=== PATIENT | female | born 1970 | race Caucasian/White ===

== ENCOUNTER → 2020-07-16 16:11 | Outpatient (CLI) | payer OTHER, SELFPAY ==
--- NOTE | ~2020-07-16 | XR_ITS ---
EXAMINATION: XR lumbar spine 2-3V DATE: 07/16/2020 16:35 INDICATION: Low back pain. TECHNIQUE: 3 views of lumbar spine were obtained. COMPARISON: None. FINDINGS: There is 3 degrees levocurvature of lumbar spine. Vertebral body heights and intervertebral disc heights are normal. There are endplate osteophytes at most levels. The facet joints are unremar kable. IMPRESSION: 1. Mild lumbar spondylosis. Reviewed, dictated and finalized at location A. IMPRESSION: 1. Mild lumbar spondylosis.
== END ==
PROVIDERS: PCP Internal Medicine; Visit Provider Nurse Practitioner
DX: M54.9 Dorsalgia, unspecified (principal); M47.816 Spondylosis without myelopathy or radiculopathy, lumbar region
CPT/HCPCS: 72100

== ENCOUNTER 2022-02-16 16:50 | Outpatient (CLI) | payer OTHER, SELFPAY ==
--- NOTE | ~2022-02-16 | XR_ITS ---
EXAM: XR_[id number]_CR HISTORY: M54.2 - Cervicalgia COMPARISON: None available FINDINGS: The craniocervical association and atlantoaxial joint are normal. Normal prevertebral soft tissues. Slight reversal of the cervical lordosis centered at C5-6. Moderate disc space narrowing an d mild marginal osteophytosis at C5-6. Remaining disc spaces preserved. Vertebral body heights are in tact. Mild facet hypertrophy in the upper and mid cervical spine. IMPRESSION: Moderate degenerative disc disease at C5-6. Multilevel mild facet arthropathy. Reviewed, dictated and finalized at location K.
== END 2022-02-16 16:51 | disposition home or self-care (01) ==
PROVIDERS: PCP Internal Medicine; Visit Provider Nurse Practitioner
DX: M47.812 Spondylosis without myelopathy or radiculopathy, cervical region (principal)
CPT/HCPCS: 72040

== ENCOUNTER 2022-05-02 11:15 | Outpatient (RCR) | payer OTHER, SELFPAY ==
--- NOTE | 2022-03-08 17:23 | PTOPEVAL ---
Thank you for referring Vianey Curry to [facility].? The patient is scheduled to be seen for therapy? 2x/week for 8 weeks. Please review, sign, date and return this plan of care SAMIRA. I agree with and certify that the following plan of care is medically necessary. Referring Physician Date Attending Provider: Rhiannon Malloy NP Diagnosis neck and back pain. Onset chronic Additional Evaluation Detail x-ray: Moderate degenerative disc disease at C5-6. Multilevel mild facet arthropathy. low back: Mild lumbar spondylosis. Subjective Information She c/o muscle spasms which Query Text:As Reported By Patient/ cover her full back region. Family The neck spasm started in February 01. She was working on her computer when she has a muscle spasm in her left shoulder blade region. Radiating symptoms into jaw/UE and LE region Denies any injury but chronic pain. She has increased pain with driving, prolonged sitting, use of computer. States she has poor desk set- up. She changes positions at least every 30 min to 1 hr. She does cardio, UE/LE resistance training. No increased neck pain with exercise. Pain Assessment Posterior Neck Reported Pain Level 1 Pain Description Aching,Numbness,Radiating, Tender on Palpation,Tightness, Tingling Pain Radiation Left Arm Pain Frequency Chronic Lowest Pain Intensity 1 Greatest Pain Intensity 3 Pain Aggravating Factors Prolonged Position,Sitting Cervical and Lumbar ROM Cervical ROM Cervical Flexion (0-60) 50 Degrees Cervical Extension (0-70) 50 Degrees Cervical Lateral Flexion Right (0-50) 30 Degrees Cervical Lateral Flexion Left (0-50) 20 Degrees Cervical Rotation Right (0-90) 60 Degrees Cervical Rotation Left (0-90) 55 Degrees Cervical ROM Comments pain with all motion Upper Extremity Range of Motion General Upper Extremity Range of Motion Reason Not Measured WNL/Left,WNL/Right Cervical and Lumbar Muscle Testing Cervical Muscle Testing Cervical Flexion 4 Good
--- NOTE | 2022-03-14 16:20 | PCPTNOTE ---
Patient called & cancelled scheduled appointment this date due to illness. This visit was to evaluate her back. Will cont to address her neck and evaluate her back at her re-eval visit.
--- NOTE | 2022-03-17 08:54 | PCPTNOTE ---
Patient did not show up for scheduled appointment this date. Called and left voicemail for Pt about missed appointment. Reminded Pt of upcoming appointment on Monday03/22/22 @ 16:30. This is Pt's first N/S.
--- NOTE | 2022-03-24 14:33 | PCPTNOTE ---
Patient called & cancelled scheduled appointment this date due to a work emergency.
--- NOTE | 2022-03-29 12:28 | PCPTNOTE ---
Patient called & cancelled scheduled appointment this date due to exposure COVID-19.
--- NOTE | 2022-03-31 17:11 | PCPTNOTE ---
Patient called & cancelled scheduled appointment this date due to exposure to COIVD-19.
--- NOTE | 2022-04-05 16:55 | PCPTNOTE ---
Addendum entered by Ángela De La Rosa, [employer] 04/05/22 17:01: Called patient and left reminder call for next appointment on 04/07/22 at 7:30, stated understood patient was positive for COVID and educated patient to inform us on further appointments. Original Note: Patient did not show up for scheduled appointment this date.
--- NOTE | 2022-04-06 16:37 | PCPTNOTE ---
Patient called & cancelled scheduled appointment FOR 04/06/22 due to still getting over COVID-19.
--- NOTE | 2022-04-12 15:56 | PCPTNOTE ---
Patient did not show up for scheduled appointment this date. Called and spoke with patient, she got her days confused. She has been rescheduled.
--- NOTE | 2022-04-25 15:29 | PTOPEVAL ---
PHYSICAL THERAPY INITIAL EVALUATION AND PROGRESS REPORT. Thank you for referring Vianey Curry to [facility].? The patient is scheduled to be seen for therapy? 2x/week for 4 weeks. Please review, sign, date and return this plan of care SAMIRA. I agree with and certify that the following plan of care is medically necessary. Referring Physician Date Attending Provider: Rhiannon Malloy NP Evaluation Information Diagnosis neck and back pain. Onset chronic Additional Evaluation Detail Pt arrived 18 mins later for her progress report this date Subjective Information Pt states her shoulder is Query Text:As Reported By Patient/ doing better, she states she Family feels like she has more mobility but still gets stiff and sore but is not painful like before. She states her back is about the same. She reports good compliance with her HEP. Pt states she can walk 1-4 miles a day without thinking about her back pain . She states later she will notice her back pain after resting for a while. Pain Assessment Lower Back Reported Pain Level 2 Pain Description Aching,Tightness,With Movement Greatest Pain Intensity 5 Posterior Neck Reported Pain Level 0 Pain Description Soreness,Tightness Greatest Pain Intensity 3 Cervical and Lumbar ROM Cervical ROM Cervical Flexion (0-60) 52 Cervical Extension (0-70) 55 Cervical Lateral Flexion Right (0-50) 45 Cervical Lateral Flexion Left (0-50) 35 Cervical Rotation Right (0-90) 70 Cervical Rotation Left (0-90) 65 Cervical ROM Comments pt report mild discomfort on her L with rotation Lumbar ROM Lumbar Flexion Active Mid Godinez Lumbar Extension (0-40) 30 Lateral Flexion 1in above lateral knee joint Query Text:Active Hands to: bilaterally Lateral Rotation Right (0-45) 40 Lateral Rotation Left (0-45) 40 Upper Extremity Range of Motion General Upper Extremity Range of Motion WNL/Left,WNL/Right Lower Extremity Range of Motion General Lower Extremity Range of Motion WFL/Left,WFL/Right Lower Extremity Muscle Strength Testing General Lower Extremity Strength WFL/Left,WFL/Right Gross Lower Extremity Strength BLE grossly 4/5 B hip abduction 3/5 Muscle Length Testing Scalene Group Muscle Length (R) Moderate Tightness,(L) Query Text: Moderate Tightness Latissimus Dorsi
--- NOTE | 2022-05-04 16:17 | PCPTNOTE ---
Patient did not show up for scheduled appointment this date. Pt called after appointment time to cancel. See Physical Therapist note.
--- NOTE | 2022-05-04 16:23 | PCPTNOTE ---
Attending Provider: Rhiannon Malloy NP Patient:Vianey Curry Date of :1970 PHYSICAL THERAPY DISCHARGE SUMMARY Patient called today to cancel all of her remaining appointments. She states she went to the doctor today and they determined they would like to try someone else for her back pain. Pt states she would like to be discharged at this time. She was informed that if she would like to return to therapy she will need a new order. Patient?s initial visit was on 03/08/2022 and she had a total of 6 visits. Thank you for referring this patient to [facility]. Please review, sign, date and return this discharge summary SAMIRA. I have been updated about the patient's current status and I agree with discharge from the above service at this time. Referring Physician Date
== END 2022-05-05 08:33 | disposition home or self-care (01) ==
LOC: ANHPT 11:15
PROVIDERS: PCP Internal Medicine; Visit Provider Nurse Practitioner
DX: M54.50 Low back pain, unspecified (principal); M54.2 Cervicalgia
CPT/HCPCS: 97014; 97110; 97140; 97161; 97162; G0283

== ENCOUNTER 2022-06-21 08:00 | Outpatient (NON) | payer OTHER, SELFPAY | END 2022-06-21 08:01 | disposition home or self-care (01) | LOC: ANHLAB 06-22 07:48 | PROVIDERS: PCP Internal Medicine; Visit Provider Internal Medicine Gastroenterology | DX: Z12.11 Encounter for screening for malignant neoplasm of colon (principal) | CPT/HCPCS: 88305 ==

== ENCOUNTER 2022-06-21 14:08 | Day surgery (SDC) | payer OTHER, SELFPAY ==
[2022-06-08 09:01] VITALS: BMI 29.4
[2022-06-08 10:22] VITALS: BMI 29.9
--- NOTE | 2022-06-21 07:24 | P.PNAN_ITS ---
Anes - Initial Pre Proc Eval Procedure: Operation Date: 06/21/22 14:30 Proposed Procedures p Screening Colonoscopy - Robby Torres MD Date/Time: 06/21/22 07:24 Surgeon: Robby Torres MD Pre Op Diagnosis: Neoplasm Screening Patient Data Age: 52 Gender: F Height: 1.63 m Weight: 79 kg Allergies Allergy/AdvReac Type Severity Reaction Status Date / Time No Known Allergies Allergy Verified 06/21/22 14:33 Home Medications Medication Instructions Recorded Confirmed Type dextroamphetamine-amphetamine ER 10 mg PO DAILY 08/31/21 06/15/22 History 10 mg 24hr capsule,extend release (Adderall XR) estradiol 1 mg tablet (Estrace) 1 mg PO DAILY 06/08/22 06/15/22 History cyclobenzaprine 10 mg tablet 10 mg PO BID PRN muscle spasm #20 06/15/22 06/15/22 Rx tabs Patient hx anesthesia problems: none Family hx anesthesia problems: none Results Review: All pre-operative results and documents have been reviewed as part of the pre- operative evaluation. [facility] Past Medical History Medical History Anxiety Depression Surgical History Surgical History H/O laparoscopy H/O: hysterectomy Family History Family History Mother Hypertension Father Hypertension CHF (congestive heart failure) Social History Social History Social History: caffeine-3 cups daily Smoking status: Never smoker Alcohol intake: current Alcohol use details: occasional Substance use type: does not use Living arrangements: with family Spiritual care concerns: No Anes - Eval Final PreProcedure Day of Procedure 06/21/22 07:24 Patient weight: overweight Heart: regular rate and rhythm Lungs: clear to auscultation Airway: Mallampati scale class II Neurological: alert and oriented Last oral intake: >/= 8 hours ASA classification: II Emergent: no Anesthetic plan: proceed Anesthesia type and monitoring: general GIVS and standard monitoring Results Review: All pre-operative results and documents have been reviewed as part of the pre- operative evaluation. Informed Consent: The patient's anesthetic plan and its attendant risks and benefits were discussed with the patient/family/POA. Questions were solicited and answers provided to the satisfaction of the patient/family/POA.
[2022-06-21 14:47] VITALS: BMI 30.2
[2022-06-21 14:48] VITALS: BP 138/90; PULSE 59; RESP 15; TEMP 37.2; O2SAT 100
[2022-06-21] MEDS: LACTATED RINGERS 1,000 ML 150 ML IV CONT (14:51)
[2022-06-21 14:58] VITALS: BP 142/83; PULSE 60; RESP 20; O2SAT 95
--- NOTE | 2022-06-21 15:07 | PM.HPGS ---
History of Present Illness History of Present Illness Consent: Risks, benefits, and alternatives have been discussed and questions answered. Patient agrees to proceed with procedure. Chief complaint: Neoplasm Screening Narrative: Vianey Curry is a 52 year old female here for first screening colonoscopy Review of Systems Constitutional: Constitutional: Denies headache(s) and Denies weakness Eyes: Eyes: Denies blurry vision ENT: Reports Normal hearing present, Denies headache(s) and Denies neck pain Cardiovascular: Cardiovascular: Denies chest pain and Denies dyspnea Respiratory: Respiratory: Denies dyspnea Gastrointestinal: Gastrointestinal: Reports no additional gastrointestinal complaints Genitourinary: Genitourinary: Denies dysuria Musculoskeletal: Musculoskeletal: Denies neck pain Integumentary/Breasts: Skin/Breast: Denies dry skin Neurologic: Reports Normal hearing present, Denies headache(s) and Denies weakness Psychiatric: Psychiatric: Denies anxiety Endocrine: Endocrine: Denies change in body appearance Hematologic/Lymphatic: Hematologic/Lymphatic: Denies easy bleeding Allergic/Immunologic: Allergic/Immunologic: Denies urticaria PMFSH Past Medical History Medical History (Updated 06/21/22 @ 15:08 by Robby Torres MD) Anxiety Colon cancer screening Depression Surgical History Surgical History H/O laparoscopy H/O: hysterectomy Family History Family History Mother Hypertension Father Hypertension CHF (congestive heart failure) Social History Social History Social History: caffeine-3 cups daily Smoking status: Never smoker Alcohol intake: current Alcohol use details: occasional Substance use type: does not use Living arrangements: with family Spiritual care concerns: No Meds Home Medications and Allergies Home Medications Medication Instructions Recorded Confirmed Type dextroamphetamine-amphetamine ER 10 mg PO DAILY 08/31/21 06/21/22 History 10 mg 24hr capsule,extend release (Adderall XR) estradiol 1 mg tablet (Estrace) 1 mg PO DAILY 06/08/22 06/21/22 History cyclobenzaprine 10 mg tablet 10 mg PO BID PRN muscle spasm #20 06/15/22 06/21/22 Rx tabs Allergies Allergy/AdvReac Type Severity Reaction Status Date / Time No Known Allergies Allergy Verified 06/21/22 14:33 Vital Signs Vital Signs - 24 hr 06/21/22 14:48 Temperature 98.9 F Pulse Rate 59 L Respiratory Rate 15 Blood Pressure 138/90 Pulse Oximetry 100 Oxygen Delivery Room Air Exam Const: General: comfortable and no acute distress HENMT: General nose exam: Normal nares present Eyes: General: appearance normal, both eyes and all related structures Neck: Neck: no JVD Resp: Auscultation: clear to auscultation bilaterally Cardio: Rate: regular rate Rhythm: regular rhythm GI: Inspection: non-distended GI Palp: Yes Soft to palpation Skin: General skin exam: normal color Neuro: General: gait normal Speech: normal speech Extrem: General: normal to inspection Psych: Mental Status: mental status grossly normal Assessment and Plan Assessment and plan (1) Colon cancer screening: Code(s): Z12.11 - Encounter for screening for malignant neoplasm of colon Status: Acute Assessment and Plan: colonoscopy
[2022-06-21 15:38] VITALS: BP 113/82; PULSE 67; RESP 16; O2SAT 97
[2022-06-21 15:48] VITALS: BP 134/88; PULSE 61; RESP 16; O2SAT 97
--- NOTE | 2022-06-21 15:50 | WPDANESPN ---
Anes - Prog Note Post-Op Date/Time: 06/21/22 15:50 Cardiovascular status: normal Respiratory status: normal Airway patency: baseline Mental status: baseline Post-Op hydration status: normal Vital Signs: Last Vital Signs Temp 37.2 C 06/21/22 14:48 Pulse 67 06/21/22 15:38 Resp 16 06/21/22 15:38 BP 113/82 06/21/22 15:38 Pulse Ox 97 06/21/22 15:38 O2 Del Method Room Air 06/21/22 15:38 Pain Score (VAS): 0 Post-procedural complaints: none Patient Feedback: Patient satisfied with anesthetic care. Other Findings: Patient vital signs back to baseline. Patient denies nausea and vomiting. Patient's pain under control. Patient OK for discharge.
[2022-06-21 15:58] VITALS: BP 138/90; PULSE 52; RESP 20; O2SAT 99
== END 2022-06-21 16:09 | disposition home or self-care (01) ==
PROVIDERS: PCP Internal Medicine; Visit Provider Internal Medicine Gastroenterology
PROC: 0DJD8ZZ Inspection of Lower Intestinal Tract, Via Natural or Artificial Opening Endoscopic (ICD-10-PCS; CPT 45378; principal; 2022-06-21 14:30)
DX: Z12.11 Encounter for screening for malignant neoplasm of colon (principal)
CPT/HCPCS: 45385; 45380

== ENCOUNTER 2023-08-30 07:59 | Outpatient (CLI) | payer OTHER, SELFPAY ==
--- NOTE | ~2023-08-30 | CT_ITS ---
CT scan of the Neck Technique: 2.5 mm axial scans were obtained through the neck after intravenous administration of 75 c c Omnipaque 350. Coronal and sagittal reconstructions of the neck were obtained. Dose reduction techn ique was used on this scan by utilizing automated exposure control and iterative reconstruction techn ique. The dose-length product (DLP) was 547.47 mGy-cm. Clinical History: Chronic disease of tonsils and adenoids, sore throat, dysphagia Findings: Shotty bilateral level 2 cervical lymph nodes are present. Parapharyngeal spaces appear normal bilate rally. The parotid and submandibular glands appear normal. The pharyngeal mucosal spaces appear normal. No soft tissue masses are seen in the neck. 6 mm hypodense left thyroid lobe nodule noted. Images of the lung apices reveal no abnormalities. Impression: Shotty bilateral level 2 lymph nodes are present, likely within normal limits. No other significant abnormality identified. Reviewed, dictated and finalized at [facility]. Impression: Shotty bilateral level 2 lymph nodes are present, likely within normal limits. No other significant abnormality identified.
== END 2023-08-30 08:00 | disposition home or self-care (01) ==
LOC: ANHIMG 08:02
PROVIDERS: PCP Internal Medicine; Visit Provider Otolaryngology
DX: J35.8 Other chronic diseases of tonsils and adenoids (principal); K21.9 Gastro-esophageal reflux disease without esophagitis
CPT/HCPCS: 70491; Q9967

== ENCOUNTER 2023-09-04 07:00 | Outpatient (NON) | payer OTHER, SELFPAY | END 2023-09-04 07:01 | disposition home or self-care (01) | PROVIDERS: PCP Internal Medicine; Visit Provider Internal Medicine Gastroenterology | DX: K21.9 Gastro-esophageal reflux disease without esophagitis (principal) | CPT/HCPCS: 88305 ==

== ENCOUNTER 2023-09-04 09:27 | Day surgery (SDC) | payer OTHER, SELFPAY ==
[2023-08-14 09:38] VITALS: BMI 33.1
[2023-09-04 10:15] VITALS: BP 121/71; PULSE 48; RESP 16; TEMP 36.7; O2SAT 100
[2023-09-04] MEDS: LACTATED RINGERS 1,000 ML 150 ML IV CONT (10:25)
--- NOTE | 2023-09-04 10:36 | WPDANESEPPF ---
Anes - Initial Pre Proc Eval Procedure: Operation Date: 09/04/23 11:30 Proposed Procedures p Esophagogastroduodenoscopy - Robby Torres MD Date/Time: 09/04/23 10:36 Surgeon: Robby Torres MD Pre Op Diagnosis: Dysphagia Patient Data Age: 53 Gender: F Height: 1.63 m Weight: 85.3 kg Last Vital Signs Temp 36.7 C 09/04/23 10:15 Pulse 48 L 09/04/23 10:15 Resp 16 09/04/23 10:15 BP 121/71 09/04/23 10:15 Pulse Ox 100 09/04/23 10:15 O2 Del Method Room Air 09/04/23 10:15 Allergies Allergy/AdvReac Type Severity Reaction Status Date / Time No Known Allergies Allergy Verified 09/04/23 10:14 Home Medications Medication Instructions Recorded Confirmed Type estradiol 1 mg tablet (Estrace) 1 mg PO DAILY 06/08/22 09/04/23 History dextroamphetamine-amphetamine ER 10 mg PO DAILY PRN Anxiety 03/02/23 09/04/23 History 10 mg 24hr capsule,extend release (Adderall XR) cholecalciferol (vitamin D3) 1,250 1,250 mcg PO WEEKLY #8 caps 05/10/23 09/04/23 Rx mcg (50,000 unit) capsule Patient hx anesthesia problems: none Family hx anesthesia problems: none Results Review: All pre-operative results and documents have been reviewed as part of the pre-operative evaluation. [facility] Past Medical History Medical History Adenomatous colon polyp Anxiety Colon cancer screening Depression Dysphagia Odynophagia Surgical History Surgical History (Updated 09/04/23 @ 10:36 by Nimesh García MD) H/O colonoscopy H/O laparoscopy H/O: hysterectomy Family History Family History Mother Hypertension Father Hypertension CHF (congestive heart failure) Sibling Hypertension Social History Social History Social History: caffeine-3 cups daily Smoking status: Never smoker Alcohol intake: current Alcohol use details: rarely Substance use: never Substance use type: does not use Lack of Transportation: No Lack of Food: Never True Current Housing: I Have Housing Concerned About Future Housing: No Difficulty Paying Gas/Electric Bills: No Difficulty Paying for Meds: No Currently Unemployed: No Education: Master's Degree or Higher Difficulty w/ Childcare or Family Care: No Living arrangements: with family Spiritual care concerns: No Anes - Eval Final PreProcedure Day of Procedure 09/04/23 10:36 Patient weight: obese Heart: regular rate and rhythm Lungs: clear to auscultation Airway: Mallampati scale class II Neurological: alert and oriented Last oral intake: >/= 8 hours ASA classification: II Emergent: no Anesthetic plan: proceed Anesthesia type and monitoring: general GIVS and standard monitoring Results Review: All pre-operative results and documents have been reviewed as part of the pre-operative evaluation. Informed Consent: The patient's anesthetic plan and its attendant risks and benefits were discussed with the patient/family/POA. Questions were solicited and answers provided to the satisfaction of the patient/family/POA.
--- NOTE | 2023-09-04 11:04 | WPDHPUPDATE1 ---
History and Physical Update Update Date/Time: 09/04/23 11:04 History and Physical has been reviewed, including an updated exam of the patient. There are NO changes in the patient's condition. Risks, benefits, and alternatives have been discussed and questions answered. Patient agrees to proceed with procedure.
[2023-09-04 11:16] VITALS: BP 116/73; PULSE 50; RESP 16; O2SAT 97
[2023-09-04 11:26] VITALS: BP 118/76; PULSE 50; RESP 15; O2SAT 98
[2023-09-04 11:36] VITALS: BP 128/81; PULSE 53; RESP 16; O2SAT 100
--- NOTE | 2023-09-04 11:44 | WPDANESPN ---
Anes - Prog Note Post-Op Date/Time: 09/04/23 11:44 Cardiovascular status: normal Respiratory status: normal Airway patency: baseline Mental status: baseline Post-Op hydration status: normal Vital Signs: Last Vital Signs Temp 36.7 C 09/04/23 10:15 Pulse 50 L 09/04/23 11:16 Resp 16 09/04/23 11:16 BP 116/73 09/04/23 11:16 Pulse Ox 97 09/04/23 11:16 O2 Del Method Room Air 09/04/23 11:16 Pain Score (VAS): 0/10 I/O: Intake & Output 09/03/23 09/04/23 09/04/23 23:59 07:59 15:59 Intake Total 200 Balance 200 Patient Feedback: Patient satisfied with anesthetic care.
== END 2023-09-04 11:53 | disposition home or self-care (01) ==
PROVIDERS: PCP Internal Medicine; Visit Provider Internal Medicine Gastroenterology
PROC: 0DJ08ZZ Inspection of Upper Intestinal Tract, Via Natural or Artificial Opening Endoscopic (ICD-10-PCS; CPT 43235; principal; 2023-09-04 11:30)
DX: K44.9 Diaphragmatic hernia without obstruction or gangrene (principal); K29.70 Gastritis, unspecified, without bleeding
CPT/HCPCS: 43239

== ENCOUNTER 2024-12-04 12:21 | Emergency (ER) | payer OTHER, SELFPAY ==
[2024-12-04 12:37] VITALS: BP 145/103; PULSE 71; RESP 16; TEMP 36.7; O2SAT 100
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
== END 2024-12-04 13:06 | disposition home or self-care (01) ==
PROVIDERS: Emergency Provider Nurse Practitioner; PCP Internal Medicine
DX: S51.852A Open bite of left forearm, initial encounter (principal); Y04.1XXA Assault by human bite, initial encounter; Y99.0 Civilian activity done for income or pay; F41.9 Anxiety disorder, unspecified; F32.A Depression, unspecified
CPT/HCPCS: 99213; G0463

== ENCOUNTER 2025-06-24 02:19 | Day surgery (SDC) | payer OTHER, SELFPAY ==
[2025-06-10 10:04] VITALS: BMI 32.5
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
--- OUTSIDE RECORDS SUMMARY | 2025-06-24 02:23 | XMS_ITS | Clinical Summary ---
Author Organization [facility] Address [address] [place] [address] Care Team Providers Care Manager Physical Name Role Phone Brandon Berry DO Primary Care Provider [phone] Source Comments [facility],non-owned Affiliates and Associated Physician Practices is amultiple site organization consisting of ambulatory clinics and hospital sitesin [place], [place], [place] and [place]. This disclosure is being madepursuant to the Care Everywhere program and may not contain all information available regarding this patient. Last updated 18.[facility] Allergies No known active allergies Medications * Be aware that medications may not be up to date on this document. Alwaysverify current medications with the patient. meloxicam (MOBIC) 7.5 MG tablet Take 7.5 mg by mouth once daily Active multivitamin daily tablet Take 1 tablet by mouth daily with food Active Social History Tobacco Use Types Packs/Day Years Used Date Smoking Tobacco: Never Smokeless Tobacco: Never Comments No Sex and Gender Information Value Date Recorded Sex Assigned at Not on file Legal Sex Female 5:17 PM DYNAMOMETER TESTER Gender Identity Not on file Sexual Orientation Not on file Last Filed Vital Signs Vital Sign Reading Time Taken Comments Blood Pressure 122/80 04/28/2019 11:21 AM CDT Pulse 80 04/28/2019 11:21 AM CDT Temperature 37.1 C (98.7 F) 04/28/2019 11:21 AM CDT Respiratory Rate 16 04/28/2019 11:21 AM CDT Oxygen Saturation 98% 04/28/2019 11:21 AM CDT Inhaled Oxygen Concentration - - Weight 77.1 kg (170 lb) 04/28/2019 11:21 AM CDT Height 162.6 cm (5' 4) 04/28/2019 11:21 AM CDT Body Mass Index 29.18 04/28/2019 11:21 AM CDT Plan of Treatment Health Maintenance Due Date Last Done Comments COLOGUARD (AGES 45-75) - COL ON CA SCREENING 1969 COLON MONITORING 1969 COLONOSCOPY - COLON CA SCREENING 1969 CT COLONOGRAPHY - COLON CA SCREENING 1969 Colorectal Cancer Screening 1969 FIT - COLON CA SCREENING 1969 FLEX SIG - COLON CA SCREENING 1969 LIPID TESTING 1969 MAMMOGRAM 1969 HIV SCREENING 02/01/1984 HEPATITIS C SCREENING 01/27/1987 DTAP/TDAP/TD VACCINES (1 - Tdap) 02/01/1988 HEPATITIS B VACCINE (1 of 3 - 19+ 3-dose series) 02/01/1988 PAP SMEAR 1990 PNEUMOCOCCAL VACCINE 50+ (1 of 1 - PCV) 2019 ZOSTER VACCINE (1 of 2) 2019 SCREENING FOR DIABETES 04/28/2019 COVID-19 VACCINE (1 - 2023-2 5 season) 2024 DEPRESSION SCREENING 11/13/2024 INFLUENZA VACCINE (#1) 2025 0, 09/15/2019 HIB VACCINE Aged Out No longer eligi ble based on patient's age to complete this topic HPV VACCINE Aged Out No longer eligi ble based on patient's age to complete this topic MENINGOCOCCAL (Group B) VACCINE SHARED DECISION-MAKING Aged Out No longer eligible based on patient's age to complete this topic MENINGOCOCCAL GROUPS A/C/Y/W VACCINE Aged Out No longer eligible b ased on patient's age to complete this topic Insurance REPLACED BY [facility] Care Teams Manager Physical Relationship Specialty Start Date End Date Brandon Berry DO PCP - General 09/22/17
--- OUTSIDE RECORDS SUMMARY | 2025-06-24 02:23 | XMS_ITS | Clinical Summary ---
Author Organization [employer] [facility] Address [address] [place] [address] Care Team Providers Care Barrel Drum Cutter Name Role Phone Unavailable Primary Care Provider Unavailabl e Immunizations Immunization Administration Dates Next Due (ADACEL/BOOSTRIX)(10 YR UP) TDAP VACCINE, 0.5ML, IM 08/12/2023 Social History Tobacco Use Types Packs/Day Years Used Date Smoking Tobacco: Never Assessed Comments Unknown Sex and Gender Information Value Date Recorded Sex Assigned at Not on file Legal Sex Female 10:32 AM CDT Gender Identity Not on file Sexual Orientation Not on file Plan of Treatment Health Maintenance Due Date Last Done Comments HEPATITIS B VACCINES (1 of 3 - 19+ 3-dose series) 01/12 HPV/Cotest (21-29) 1990 CERVICAL CANCER SCREENING 1999 HPV/Cotest (30-65) 1999 PAP SMEAR 1999 BREAST CANCER SCREENING 2009 COLORECTAL SCREENING 2014 Colorectal Cancer Screening 2014 FIT-DNA Q 3 years 2014 FIT/FOBT Q 1 year 2014 Flex Sig/CT Colonography Q 5 years 2014 ZOSTER VACCINE (1 of 2) 2019 INFLUENZA VACCINE (#1) 2025 DTAP/TDAP/TD VACCINES (2 - Td or Tdap) 08/12/2033 Insurance RX GENERIC COMMERCIAL Commercial
[2025-06-24 12:49] VITALS: BP 140/76; PULSE 61; RESP 20; TEMP 35.8; O2SAT 99; BMI 32.8
[2025-06-24] MEDS: LACTATED RINGERS 1,000 ML 150 ML IV CONT (13:00)
--- NOTE | 2025-06-24 13:34 | P.PNAN_ITS ---
Anes - Initial Pre Proc Eval Procedure: Operation Date: 06/24/25 13:15 Proposed Procedures p Esophagogastroduodenoscopy - Robby Torres MD Date/Time: 06/24/25 13:34 Surgeon: Robby Torres MD Pre Op Diagnosis: GERD Patient Data Age: 55 Gender: F Height: 1.63 m Weight: 86.6 kg Last Vital Signs Temp 96.4 F L 06/24/25 12:49 Pulse 61 06/24/25 12:49 Resp 20 06/24/25 12:49 BP 140/76 06/24/25 12:49 Pulse Ox 99 06/24/25 12:49 O2 Del Method Room Air 06/24/25 12:49 Allergies Allergy/AdvReac Type Severity Reaction Status Date / Time No Known Allergies Allergy Verified 06/24/25 12:48 Home Medications ?Medication ?Instructions ?Recorded ?Confirmed ?Type estradiol 1 mg tablet (Estrace) 1 mg PO DAILY 06/08/22 06/24/25 History dextroamphetamine-amphetamine ER 10 mg PO DAILY PRN Anxiety 03/02/23 06/24/25 History 10 mg 24hr capsule,extend release (Adderall XR) sertraline 50 mg tablet 25 mg PO Q24H 12/04/24 06/24/25 History omeprazole 40 mg capsule,delayed 40 mg PO DAILY #30 caps 04/22/25 06/24/25 Rx release cholecalciferol (vitamin D3) 1,250 1,250 mcg PO WEEKLY #8 caps 06/18/25 06/24/25 Rx mcg (50,000 unit) capsule Patient hx anesthesia problems: none Family hx anesthesia problems: none Results Review: All pre-operative results and documents have been reviewed as part of the pre- operative evaluation. [facility] Past Medical History Medical History Adenomatous colon polyp Odynophagia Dysphagia Colon cancer screening Depression Anxiety Surgical History Surgical History H/O colonoscopy H/O laparoscopy H/O: hysterectomy Family History Family History Mother Hypertension Father Hypertension CHF (congestive heart failure) Sibling Hypertension Social History Social History Social History: caffeine-3 cups daily Smoking status: Never smoker Alcohol intake: never Alcohol use details: rarely Substance use: never Substance use type: does not use Do You Feel Safe in your Home?: Yes Lack of Transportation: No Lack of Food: Never True Current Housing: I Have Housing Concerned About Future Housing: No Difficulty Paying Gas/Electric Bills: No Difficulty Paying for Meds: No Currently Unemployed: No Education: Master's Degree or Higher Difficulty w/ Childcare or Family Care: No Living arrangements: with family Spiritual care concerns: No Anes - Eval Final PreProcedure Day of Procedure 06/24/25 13:34 Patient weight: overweight Lungs: normal air movement Airway: Mallampati scale class II Neurological: alert and oriented Last oral intake: >/= 8 hours ASA classification: II Emergent: no Anesthetic plan: proceed Anesthesia type and monitoring: general GIVS and standard monitoring Results Review: All pre-operative results and documents have been reviewed as part of the pre- operative evaluation. GERD/dysphagia, OA, BMI 32. Informed Consent: The patient's anesthetic plan and its attendant risks and benefits were di scussed with the patient/family/POA. Questions were solicited and answers provided to the satisfaction of the patient/family/POA.
--- NOTE | 2025-06-24 13:48 | PM.HPGS ---
History of Present Illness History of Present Illness Consent: Risks, benefits, and alternatives have been discussed and questions answered. Patient agrees to proceed with procedure. Chief complaint: GERD Narrative: Vianey Curry is a 55 year old female with abd pain on ppi Review of Systems Review of Systems: All systems reviewed & are unremarkable except as noted in HPI and below PMFSH Past Medical History Medical History Adenomatous colon polyp Odynophagia Dysphagia Colon cancer screening Depression Anxiety Surgical History Surgical History H/O colonoscopy H/O laparoscopy H/O: hysterectomy Family History Family History Mother Hypertension Father Hypertension CHF (congestive heart failure) Sibling Hypertension Social History Social History Social History: caffeine-3 cups daily Smoking status: Never smoker Alcohol intake: never Alcohol use details: rarely Substance use: never Substance use type: does not use Do You Feel Safe in your Home?: Yes Lack of Transportation: No Lack of Food: Never True Current Housing: I Have Housing Concerned About Future Housing: No Difficulty Paying Gas/Electric Bills: No Difficulty Paying for Meds: No Currently Unemployed: No Education: Master's Degree or Higher Difficulty w/ Childcare or Family Care: No Living arrangements: with family Spiritual care concerns: No Meds Home Medications and Allergies Home Medications ?Medication ?Instructions ?Recorded ?Confirmed ?Type estradiol 1 mg tablet (Estrace) 1 mg PO DAILY 06/08/22 06/24/25 History dextroamphetamine-amphetamine ER 10 mg PO DAILY PRN Anxiety 03/02/23 06/24/25 History 10 mg 24hr capsule,extend release (Adderall XR) sertraline 50 mg tablet 25 mg PO Q24H 12/04/24 06/24/25 History omeprazole 40 mg capsule,delayed 40 mg PO DAILY #30 caps 04/22/25 06/24/25 Rx release cholecalciferol (vitamin D3) 1,250 1,250 mcg PO WEEKLY #8 caps 06/18/25 06/24/25 Rx mcg (50,000 unit) capsule Allergies Allergy/AdvReac Type Severity Reaction Status Date / Time No Known Allergies Allergy Verified 06/24/25 12:48 Vital Signs Vital Signs - 24 hr 06/24/25 12:49 Temperature 96.4 F L Pulse Rate 61 Respiratory Rate 20 Blood Pressure 140/76 Pulse Oximetry 99 Oxygen Delivery Room Air Exam Const: General: comfortable and no acute distress HENMT: Face/Nose/Sinus: Normal nares present Eyes: General: appearance normal, both eyes and all related structures Neck: Neck: no JVD Resp: Auscultation: clear to auscultation bilaterally Cardio: Rate: regular rate Rhythm: regular rhythm GI: Inspection: non-distended GI Palp: Yes Soft to palpation Skin: General skin exam: normal color Neuro: General: gait normal Speech: normal speech Extrem: General: normal to inspection Psych: Mental Status: mental status grossly normal Assessment and Plan Assessment and plan (1) GERD (gastroesophageal reflux disease): Code(s): K21.9 - Gastro-esophageal reflux disease without esophagitis Status: Acute Assessment and Plan: egd with bx
--- NOTE | 2025-06-24 13:52 | S_PTH ---
PATIENT: Vianey Curry LOC: [facility]#:[id number] AGE/SX: 55/F ROOM: RE06/24/[address]: Robby Torres MD : 1970 BED: DIS: 06/24/2025 SPEC #: [id number] RECD: 06/25/25 08:05 STATUS: HOWIE REIrineo #: [id number] RASHAD: 06/24/25 13:[address]: Robby Torres DEPT: [facility] RECD BY: Cayla Edmond ENTERED: 06/25/25 08:05 SP TYPE: Surgical OTHR DR: Brandon Berry DO Tissues: A - Gastric Biopsy Procedures: Hematoxylin and Eosin Stain Gross and Microscopic Level 4 H.Pylori
[2025-06-24 13:56] VITALS: BP 105/62; PULSE 48; RESP 11; O2SAT 98
[2025-06-24 14:06] VITALS: BP 104/56; PULSE 60; RESP 14; O2SAT 99
[2025-06-24 14:16] VITALS: BP 124/74; PULSE 53; RESP 16; O2SAT 100
== END 2025-06-24 14:25 | disposition home or self-care (01) ==
PROVIDERS: PCP Internal Medicine; Referring Provider Nurse Practitioner; Visit Provider Internal Medicine Gastroenterology
PROC: 0DJ08ZZ Inspection of Upper Intestinal Tract, Via Natural or Artificial Opening Endoscopic (ICD-10-PCS; CPT 43239; principal; 2025-06-24 13:15)
DX: K21.9 Gastro-esophageal reflux disease without esophagitis (principal); K29.50 Unspecified chronic gastritis without bleeding; F32.A Depression, unspecified; F41.9 Anxiety disorder, unspecified; M19.90 Unspecified osteoarthritis, unspecified site; Z98.890 Other specified postprocedural states; Z86.0100 Personal history of colon polyps, unspecified; Z82.49 Family history of ischemic heart disease and other diseases of the circulatory system
CPT/HCPCS: 43239; 88305; 88342; J2003; J2704; J7120